=== PATIENT | female | born 1945 | race Caucasian/White ===

== ENCOUNTER 2018-09-30 11:52 | Observation (INO) ==
[2018-09-30] MEDS ORDERED: Lidocaine -MPF 2% 2 ML VIAL ONE (12:22)
[2018-09-30] MEDS ORDERED: *HR* Succinylcholine 200 MG/10 ML VIAL IVP ONE (12:22)
[2018-09-30] MEDS ORDERED: Dexamethasone 4 MG/ML VIAL ONE (12:22)
[2018-09-30] MEDS ORDERED: Ondansetron 4 MG/2 ML VIAL ONE (12:22)
[2018-09-30] MEDS ORDERED: Lidocaine -MPF 4% 5 ML AMPUL ONE (12:22)
[2018-09-30] MEDS ORDERED: *HR* FentaNYL (PF) 100 MCG/2 ML VIAL ONE (12:25)
[2018-09-30] MEDS ORDERED: *HR* Propofol 200 MG/20 ML VIAL IVP ONE (12:25)
[2018-09-30] MEDS ORDERED: CeFAZolin Syr 2,000MG/20 ML 2,000 MG/20 ML SYRINGE IVPB ONE (12:41)
[2018-09-30] MEDS ORDERED: Albuterol 2.5 MG/3 ML NEBULIZER IH ONE (12:41)
[2018-09-30] MEDS ORDERED: Ringers Solution, Lactated 1,000 ML IVC SCH ×2 (12:45→18:21)
[2018-09-30] MEDS ORDERED: Ethanol\\Acetic Acid\\Na Ace\\Ben 1,000 ML IRRIG.SOLN IR ONE (12:53)
[2018-09-30] MEDS ORDERED: *HR* Labetalol 20 MG/4 ML SYRINGE IVP PRN (12:54)
[2018-09-30] MEDS ORDERED: Ondansetron 4 MG/2 ML VIAL IVP ONE (12:54)
[2018-09-30] MEDS ORDERED: *HR* Promethazine 25 MG/ML VIAL IVP PRN (12:54)
[2018-09-30] MEDS ORDERED: *HR* OxyCODONE Immed Rel 5 MG TABLET PO PRN (12:54)
[2018-09-30] MEDS ORDERED: Acetaminophen IV 1,000 MG/100 ML INFUS..BTL IVPB ONE (12:54)
[2018-09-30] MEDS ORDERED: Famotidine 20 MG/2 ML VIAL IVP ONE (12:54)
[2018-09-30] MEDS ORDERED: ROPIVACAINE/PF/NS 0.25% 1 EACH SYRINGE INTRAART ONE (13:07)
[2018-09-30] MEDS ORDERED: Ropivacaine/PF 0.5% 30 ML VIAL ONE (13:07)
[2018-09-30] MEDS ORDERED: *HR* Midazolam HCl 2 MG/2 ML VIAL ONE (13:11)
[2018-09-30] MEDS ORDERED: Tranexamic Acid 1,000 MG/10 ML VIAL ONE (13:12)
[2018-09-30] MEDS ORDERED: *HR* Rocuronium Bromide 50 MG/5 ML VIAL ONE (14:35)
[2018-09-30] MEDS ORDERED: EPHEDrine 50 MG/ML VIAL ONE (15:29)
[2018-09-30] MEDS ORDERED: *HR* PHENYLEPHRINE 1,000 MCG/10 ML SYRINGE IVP ONE (16:13)
[2018-09-30] MEDS: *HR* HYDROmorphone (PF) 1 MG/ML SYRINGE IVP PRN ×2 (16:46→17:06)
[2018-09-30] MEDS ORDERED: *HR* HYDROcodone/Acet 5/325 mg TABLET PO PRN ×2 (18:21)
[2018-09-30] MEDS ORDERED: Temazepam 15 MG CAPSULE PO PRN (18:21)
[2018-09-30] MEDS ORDERED: Sennosides 8.6 MG TABLET PO PRN (18:21)
[2018-09-30] MEDS ORDERED: MOM Conc 10 ML UD.LIQ PO PRN (18:21)
[2018-09-30] MEDS ORDERED: Ondansetron 4 MG/2 ML VIAL IVP PRN (18:21)
[2018-09-30] MEDS: Ketorolac 15 MG/ML VIAL IVP PRN (21:56)
[2018-10-01] MEDS: ceFAZolin 2,000 MG in 0.9 % Sodium Chloride 100 ML IVPB SCH ×2 (00:08→08:14)
[2018-10-01] MEDS ORDERED: Acetaminophen IV 1,000 MG/100 ML INFUS..BTL IVPB PRN (00:24)
[2018-10-01] MEDS: Ketorolac 15 MG/ML VIAL IVP PRN (04:14)
[2018-10-01 06:50] LABS: Hematocrit 30.5 % (35.3-44.9); Hemoglobin 9.5 g/dL (11.5-15.4)
[2018-10-01 07:06] LABS: BUN/Creatinine Ratio 23 (6-26); Blood Urea Nitrogen 23 mg/dL (8-23); Calcium 9.1 mg/dL (8.6-10.3); Carbon Dioxide 24 mEq/L (23-29); Chloride 103 mEq/L (98-107); Glucose 155 mg/dL (70-105); Osmolality,Calculated 289 (280-300); Potassium 4.3 mEq/L (3.5-5.1); Sodium 136 mEq/L (136-145); eGFR For African Americans > 60 (> 60); eGFR For Non-African Americans 55 (> 60)
[2018-10-01 08:32] VITALS: BP 131/73
[2018-10-01] MEDS ORDERED: Aspirin 81 MG TAB.CHEW PO SCH (09:00)
[2018-10-01] MEDS ORDERED: VITAMIN D3 PO SCH (09:00)
[2018-10-01] MEDS ORDERED: Cholecalciferol (D-3) 1,000 UNIT (25MCG) TABLET PO SCH (09:00)
[2018-10-01] MEDS ORDERED: CALCIUM CARBONATE PO SCH (09:00)
[2018-10-01] MEDS ORDERED: [UNRECOGNIZED DRUG - OTHER] PO SCH (09:00)
[2018-10-01] MEDS ORDERED: *HR* Enoxaparin 30 MG/0.3 ML SYRINGE SQ ONE (10:31)
[2018-10-01] MEDS ORDERED: *HR* Enoxaparin 30 MG/0.3 ML SYRINGE SQ SCH (16:25)
== END 2018-10-01 11:10 | disposition home or self-care (01) | DRG 483 ==
LOC: SAMDAY 11:52 → INTOOBSV 17:31 → 3NENU 17:31
PROVIDERS: ADMIT Orthopaedic Surgery; ATTEND Orthopaedic Surgery

== ENCOUNTER 2021-06-20 15:07 | Observation (INO) ==
[2021-06-20] MEDS ORDERED: Morphine Sulfate 2 MG/ML SYRINGE IVP ONE (15:49)
[2021-06-20] MEDS ORDERED: Isovue-370 500 ML BOTTLE IVP ONE (15:49)
[2021-06-20] MEDS ORDERED: Ondansetron 4 MG/2 ML VIAL IVP ONE (15:49)
[2021-06-20 16:16] LABS: Basophils # 0.1 K/mcL (0.0-0.2); Basophils % 0.5 %; Eosinophils # 0.1 K/mcL (0.0-0.6); Hematocrit 35.7 % (35.3-44.9); Immature Granulocytes % 0.6 % (0-4); Lymphocytes # 1.8 K/mcL (0.6-4.6); Lymphocytes % 13.3 %; Mean Corpuscular HGB Conc 30.8 g/dL (31.6-35.5); Mean Corpuscular Hemoglobin 28.8 pg (28.0-33.3); Mean Corpuscular Volume 93.5 fL (83.0-100.0); Mean Platelet Volume 8.9 fL (9.4-12.4); Monocytes # 0.8 K/mcL (0.0-1.3); Monocytes % 5.8 %; Neutrophils # 10.9 K/mcL (1.6-8.9); Platelet Count 493 K/mcL (140-400); Red Blood Count 3.82 M/mcL (3.82-4.97); Red Cell Distribution Width 13.7 % (11.5-14.5); Segmented Neutrophils % 78.8 %; White Blood Count 13.8 K/mcL (4.3-11.1)
[2021-06-20 16:37] LABS: Alanine Aminotransferase 9 Units/L (7-52); Albumin 4.3 g/dL (3.5-5.7); Albumin/Globulin Ratio 1.3 (1.1-2.2); Alkaline Phosphatase 66 Units/L (34-104); Amylase 26 Units/L (29-103); Aspartate Amino Transferase 13 Units/L (13-39); BUN/Creatinine Ratio 16 (6-26); Bilirubin,Direct 0.1 mg/dL (0.0-0.2); Bilirubin,Indirect 0.2 mg/dL (0.0-1.0); Bilirubin,Total 0.3 mg/dL (0.3-1.0); Blood Urea Nitrogen 14 mg/dL (8-23); Calcium 9.6 mg/dL (8.6-10.3); Carbon Dioxide 26 mEq/L (23-29); Chloride 100 mEq/L (98-107); Globulin 3.4 g/dL (2.4-3.5); Glucose 122 mg/dL (70-105); Lipase 20 Units/L (11-82); Osmolality,Calculated 284 (280-300); Potassium 3.6 mEq/L (3.5-5.1); Sodium 136 mEq/L (136-145); Total Protein 7.7 g/dL (6.4-8.9); eGFR For African Americans > 60 (> 60); eGFR For Non-African Americans > 60 (> 60)
[2021-06-20 16:38] LABS: Bilirubin,Urine Negative (Negative); Blood,Urine Moderate (Negative); Clarity,Urine Clear (Clear); Color,Urine Yellow (Yellow); Glucose,Urine (UA) Normal (Normal); Hyaline Casts,Urine Few per lpf (None Seen); Ketones,Urine Negative (Negative); Leukocyte Esterase,Urine Negative (Negative); Mucus,Urine Many per lpf (None-Few); Nitrite,Urine Negative (Negative); Protein,Urine 30 mg/dL (Neg-Trace); RBC,Urine TNTC per hpf (0-3); Specific Gravity,Urine > 1.030 (1.010-1.025); Squamous Epithelial Cell,Urine Few per hpf (None-Few); Urobilinogen,Urine Normal (Normal)
[2021-06-20] MEDS ORDERED: *HR* FentaNYL (PF) 100 MCG/2 ML VIAL IVP ONE (17:48)
[2021-06-20] MEDS ORDERED: Tetracaine/Benzocaine/Butamben 1 SPRAY AEROSOL MM ONE (18:05)
[2021-06-20] MEDS ORDERED: *HR* LORazepam 2 MG/ML VIAL IVP ONE (18:06)
[2021-06-20] MEDS ORDERED: *HR* HYDROmorphone 2 MG/ML SYRINGE IVP ONE (19:30)
[2021-06-20] MEDS ORDERED: Naloxone 0.4 MG/ML INJ IVP PRN (19:37)
[2021-06-20 19:38] LABS: INR 0.9; Prothrombin Time 10.5 Seconds (9.4-12.1)
[2021-06-20 19:40] LABS: Activated Partial Thrombo Time 30.3 Seconds (26.0-36.0)
[2021-06-20] MEDS ORDERED: Acetaminophen IV 1,000 MG/100 ML BAG IVPB PRN (19:42)
[2021-06-20] MEDS ORDERED: Saliva Stimulant 44.3ml BOTTLE PO PRN (19:42)
[2021-06-20] MEDS ORDERED: Chloraseptic Spray 177 ML BOTTLE MM PRN (19:42)
[2021-06-20 20:21] LABS: Magnesium 1.9 mg/dL (1.6-2.6)
[2021-06-20] MEDS ORDERED: Melatonin 3 MG TABLET PO PRN (21:00)
[2021-06-20] MEDS: Ondansetron ODT 4 MG TAB.RAPDIS SL PRN (21:56)
[2021-06-20] MEDS: Ringers Solution, Lactated 1,000 ML IVC SCH (22:01)
[2021-06-21] MEDS ORDERED: Acetaminophen IV 1,000 MG/100 ML BAG IVPB SCH
[2021-06-21] MEDS ORDERED: Morphine Sulfate 2 MG/ML SYRINGE IVP PRN (00:19)
[2021-06-21] MEDS ORDERED: Acetaminophen IV 1,000 MG/100 ML BAG IVPB PRN (00:21)
[2021-06-21] MEDS: Morphine Sulfate 2 MG/ML SYRINGE IVP PRN ×2 (00:54→04:47)
[2021-06-21] MEDS: Ringers Solution, Lactated 1,000 ML IVC SCH (06:38)
[2021-06-21] MEDS: Ondansetron ODT 4 MG TAB.RAPDIS SL PRN ×2 (07:33→16:47)
[2021-06-21 08:25] LABS: Basophils # 0.1 K/mcL (0.0-0.2); Basophils % 0.7 %; Eosinophils # 0.3 K/mcL (0.0-0.6); Eosinophils % 3.2 %; Hematocrit 29.9 % (35.3-44.9); Immature Granulocytes % 0.4 % (0-4); Lymphocytes # 2.2 K/mcL (0.6-4.6); Lymphocytes % 23.5 %; Mean Corpuscular HGB Conc 30.4 g/dL (31.6-35.5); Mean Corpuscular Volume 95.2 fL (83.0-100.0); Monocytes # 0.9 K/mcL (0.0-1.3); Monocytes % 9.2 %; Platelet Count 405 K/mcL (140-400); Red Blood Count 3.14 M/mcL (3.82-4.97); Red Cell Distribution Width 14.2 % (11.5-14.5); White Blood Count 9.5 K/mcL (4.3-11.1)
[2021-06-21 08:26] LABS: Hemoglobin 9.1 g/dL (11.5-15.4)
[2021-06-21 08:44] LABS: Albumin 3.5 g/dL (3.5-5.7); Albumin/Globulin Ratio 1.3 (1.1-2.2); Bilirubin,Indirect 0.3 mg/dL (0.0-1.0); Bilirubin,Total 0.3 mg/dL (0.3-1.0); Globulin 2.6 g/dL (2.4-3.5); Total Protein 6.1 g/dL (6.4-8.9)
[2021-06-21 08:45] LABS: BUN/Creatinine Ratio 16 (6-26); Blood Urea Nitrogen 13 mg/dL (8-23); Calcium 8.4 mg/dL (8.6-10.3); Carbon Dioxide 27 mEq/L (23-29); Chloride 103 mEq/L (98-107); Chol/HDL Ratio 3.1 (0-4.9); Cholesterol 151 mg/dL (< 200); Glucose 118 mg/dL (70-105); HDL Cholesterol 49 mg/dL (40-59); LDL Cholesterol,Calculated 74 mg/dL (< 100); Magnesium 1.9 mg/dL (1.6-2.6); Osmolality,Calculated 281 (280-300); Phosphorous 2.9 mg/dL (2.7-4.5); Potassium 3.7 mEq/L (3.5-5.1); Sodium 135 mEq/L (136-145); Triglycerides 139 mg/dL (< 150); eGFR For African Americans > 60 (> 60); eGFR For Non-African Americans > 60 (> 60)
[2021-06-21 10:25] LABS: Protein/Creatinine Ratio,Urine 0.12 mg/mg (0.00-0.20)
[2021-06-21] MEDS: Ketorolac 30 MG/ML VIAL IVP PRN ×2 (11:45→17:59)
[2021-06-21] MEDS ORDERED: Ketorolac 30 MG/ML VIAL IVP PRN (19:07)
[2021-06-21] MEDS ORDERED: Ondansetron 4 MG/2 ML VIAL IVP ONE (21:06)
[2021-06-21] MEDS ORDERED: Morphine Sulfate Oral CONC 10 MG/0.5 ML ORAL.SYG SL ONE (22:56)
[2021-06-22 02:35] LABS: Hematocrit 27.7 % (35.3-44.9); Hemoglobin 8.5 g/dL (11.5-15.4); Mean Corpuscular HGB Conc 30.7 g/dL (31.6-35.5); Mean Corpuscular Volume 97.9 fL (83.0-100.0); Mean Platelet Volume 9.1 fL (9.4-12.4); Platelet Count 372 K/mcL (140-400); Red Blood Count 2.83 M/mcL (3.82-4.97)
[2021-06-22 02:52] LABS: BUN/Creatinine Ratio 17 (6-26); Blood Urea Nitrogen 12 mg/dL (8-23); Calcium 8.1 mg/dL (8.6-10.3); Carbon Dioxide 27 mEq/L (23-29); Chloride 103 mEq/L (98-107); Glucose 100 mg/dL (70-105); Magnesium 1.9 mg/dL (1.6-2.6); Osmolality,Calculated 282 (280-300); Phosphorous 2.8 mg/dL (2.7-4.5); Potassium 3.6 mEq/L (3.5-5.1); Sodium 136 mEq/L (136-145); eGFR For African Americans > 60 (> 60); eGFR For Non-African Americans > 60 (> 60)
[2021-06-22] MEDS ORDERED: Ondansetron 4 MG/2 ML VIAL IVP ONE (03:40)
[2021-06-22] MEDS: Acetaminophen 325 MG TABLET PO PRN ×2 (15:03→22:21)
[2021-06-23 06:49] LABS: Hematocrit 25.9 % (35.3-44.9); Hemoglobin 7.9 g/dL (11.5-15.4); Mean Corpuscular HGB Conc 30.5 g/dL (31.6-35.5); Mean Corpuscular Hemoglobin 29.2 pg (28.0-33.3); Mean Corpuscular Volume 95.6 fL (83.0-100.0); Mean Platelet Volume 9.1 fL (9.4-12.4); Platelet Count 360 K/mcL (140-400); Red Blood Count 2.71 M/mcL (3.82-4.97); Red Cell Distribution Width 13.8 % (11.5-14.5); White Blood Count 6.9 K/mcL (4.3-11.1)
[2021-06-23 07:03] LABS: BUN/Creatinine Ratio 11 (6-26); Blood Urea Nitrogen 7 mg/dL (8-23); Calcium 8.7 mg/dL (8.6-10.3); Carbon Dioxide 34 mEq/L (23-29); Chloride 100 mEq/L (98-107); Glucose 102 mg/dL (70-105); Magnesium 2.1 mg/dL (1.6-2.6); Osmolality,Calculated 284 (280-300); Phosphorous 2.5 mg/dL (2.7-4.5); Potassium 3.6 mEq/L (3.5-5.1); Sodium 138 mEq/L (136-145); eGFR For African Americans > 60 (> 60); eGFR For Non-African Americans > 60 (> 60)
[2021-06-23] MEDS ORDERED: Lidocaine -MPF 2% 5 ML VIAL ONE (12:50)
[2021-06-23] MEDS ORDERED: *HR* Metoprolol 5 MG/5 ML VIAL IVP ONE (12:50)
[2021-06-23] MEDS ORDERED: Pantoprazole 40 MG VIAL IVP ONE (12:56)
[2021-06-23] MEDS: Acetaminophen 325 MG TABLET PO PRN (23:38)
[2021-06-24 05:42] LABS: Hematocrit 27.1 % (35.3-44.9); Hemoglobin 8.2 g/dL (11.5-15.4); Mean Corpuscular HGB Conc 30.3 g/dL (31.6-35.5); Mean Corpuscular Hemoglobin 28.9 pg (28.0-33.3); Mean Corpuscular Volume 95.4 fL (83.0-100.0); Mean Platelet Volume 9.1 fL (9.4-12.4); Platelet Count 377 K/mcL (140-400); Red Blood Count 2.84 M/mcL (3.82-4.97); Red Cell Distribution Width 13.9 % (11.5-14.5); White Blood Count 8.1 K/mcL (4.3-11.1)
[2021-06-24 06:01] LABS: BUN/Creatinine Ratio 14 (6-26); Blood Urea Nitrogen 12 mg/dL (8-23); Calcium 8.5 mg/dL (8.6-10.3); Carbon Dioxide 32 mEq/L (23-29); Chloride 100 mEq/L (98-107); Glucose 99 mg/dL (70-105); Osmolality,Calculated 284 (280-300); Phosphorous 3.2 mg/dL (2.7-4.5); Potassium 3.4 mEq/L (3.5-5.1); Sodium 137 mEq/L (136-145); eGFR For African Americans > 60 (> 60); eGFR For Non-African Americans > 60 (> 60)
[2021-06-24 06:42] VITALS: O2SAT 100
[2021-06-24 10:24] VITALS: BP 114/68; PULSE 78; TEMP 97.6
[2021-06-24 11:18] LABS: % Iron Saturation 5 % (15-50); Iron 17 mcg/dL (50-170); Transferrin 269 mg/dL (203-362)
[2021-06-24 11:35] LABS: Ferritin 37 ng/mL (10-120)
== END 2021-06-24 14:35 | disposition home or self-care (01) ==
LOC: 3BNU 15:07 → EMEROOARM 15:07 → SUATTDRO 20:59 → 3BNU 21:30
PROVIDERS: ADMIT Pharmacist; ATTEND Internal Medicine
PROC: ENDOEBX (2021-06-23 12:20)

== ENCOUNTER 2021-06-30 11:11 | Observation (INO) ==
[2021-06-30] MEDS ORDERED: Isovue-370 500 ML BOTTLE IVP ONE (12:16)
[2021-06-30 12:20] LABS: Bacteria,Urine Few per hpf (None-Few); Bilirubin,Urine Negative (Negative); Blood,Urine Negative (Negative); Clarity,Urine Turbid (Clear); Color,Urine Light-Yellow (Yellow); Glucose,Urine (UA) Normal (Normal); Hyaline Casts,Urine Few per lpf (None Seen); Ketones,Urine Negative (Negative); Leukocyte Esterase,Urine Moderate (Negative); Mucus,Urine Few per lpf (None-Few); Nitrite,Urine Negative (Negative); Protein,Urine Trace mg/dL (Neg-Trace); RBC,Urine 0-3 per hpf (0-3); Specific Gravity,Urine 1.019 (1.010-1.025); Squamous Epithelial Cell,Urine Moderate per hpf (None-Few); Urobilinogen,Urine Normal (Normal); WBC,Urine 15-30 per hpf (0-3)
[2021-06-30 12:21] LABS: Basophils # 0.1 K/mcL (0.0-0.2); Basophils % 0.7 %; Eosinophils # 0.3 K/mcL (0.0-0.6); Eosinophils % 3.7 %; Hematocrit 29.3 % (35.3-44.9); Hemoglobin 9.1 g/dL (11.5-15.4); Immature Granulocytes % 0.3 % (0-4); Lymphocytes % 28.1 %; Mean Corpuscular HGB Conc 31.1 g/dL (31.6-35.5); Mean Corpuscular Hemoglobin 28.9 pg (28.0-33.3); Mean Platelet Volume 9.1 fL (9.4-12.4); Monocytes # 0.6 K/mcL (0.0-1.3); Monocytes % 8.6 %; Neutrophils # 4.2 K/mcL (1.6-8.9); Platelet Count 515 K/mcL (140-400); Red Blood Count 3.15 M/mcL (3.82-4.97); Red Cell Distribution Width 13.7 % (11.5-14.5); Segmented Neutrophils % 58.6 %; White Blood Count 7.1 K/mcL (4.3-11.1)
[2021-06-30] MEDS ORDERED: Ondansetron 4 MG/2 ML VIAL IVP ONE (12:23)
[2021-06-30] MEDS ORDERED: 0.9 % Sodium Chloride 500 ML IVC ONE (12:23)
[2021-06-30 12:45] LABS: Alanine Aminotransferase 8 Units/L (7-52); Albumin 4.3 g/dL (3.5-5.7); Albumin/Globulin Ratio 1.4 (1.1-2.2); Alkaline Phosphatase 54 Units/L (34-104); Amylase 29 Units/L (29-103); Aspartate Amino Transferase 11 Units/L (13-39); BUN/Creatinine Ratio 19 (6-26); Bilirubin,Indirect 0.3 mg/dL (0.0-1.0); Bilirubin,Total 0.3 mg/dL (0.3-1.0); Blood Urea Nitrogen 20 mg/dL (8-23); Calcium 9.5 mg/dL (8.6-10.3); Carbon Dioxide 27 mEq/L (23-29); Chloride 98 mEq/L (98-107); Globulin 3.1 g/dL (2.4-3.5); Glucose 106 mg/dL (70-105); Lipase 21 Units/L (11-82); Osmolality,Calculated 279 (280-300); Potassium 4.2 mEq/L (3.5-5.1); Sodium 133 mEq/L (136-145); Total Protein 7.4 g/dL (6.4-8.9); eGFR For African Americans > 60 (> 60); eGFR For Non-African Americans 50 (> 60)
[2021-06-30] MEDS ORDERED: cefTRIAXone 1,000 MG in Water for inj. (sterile) 10 ML IVP ONE (13:42)
[2021-06-30] MEDS ORDERED: Ketorolac 30 MG/ML VIAL IVP ONE (13:55)
[2021-06-30] MEDS ORDERED: Ketorolac 30 MG/ML VIAL IM PRN (14:54)
[2021-06-30] MEDS ORDERED: Naloxone 0.4 MG/ML INJ IVP PRN (14:54)
[2021-06-30] MEDS ORDERED: Ondansetron 4 MG/2 ML VIAL IVP PRN (14:54)
[2021-06-30 15:26] LABS: Influenza A PCR Negative (Negative); Influenza B PCR Negative (Negative); Resp. Syncytial Virus PCR Negative (Negative)
[2021-06-30 15:27] LABS: SARS-CoV-2 by PCR (In House) Negative (Negative)
[2021-06-30] MEDS: 0.9 % Sodium Chloride 1,000 ML IVC SCH (17:23)
[2021-06-30] MEDS ORDERED: Ketorolac 30 MG/ML VIAL IVP PRN (17:57)
[2021-06-30] MEDS: *HR* HYDROcodone/Acet 5/325 mg TABLET PO PRN (21:50)
[2021-07-01] MEDS: *HR* HYDROcodone/Acet 5/325 mg TABLET PO PRN ×2 (03:47→18:59)
[2021-07-01 03:54] LABS: Basophils # 0.1 K/mcL (0.0-0.2); Basophils % 1.1 %; Eosinophils # 0.4 K/mcL (0.0-0.6); Eosinophils % 6.4 %; Hematocrit 25.3 % (35.3-44.9); Hemoglobin 7.6 g/dL (11.5-15.4); Immature Granulocytes % 0.3 % (0-4); Lymphocytes # 2.3 K/mcL (0.6-4.6); Lymphocytes % 35.4 %; Mean Corpuscular Hemoglobin 28.3 pg (28.0-33.3); Mean Corpuscular Volume 94.1 fL (83.0-100.0); Mean Platelet Volume 9.1 fL (9.4-12.4); Monocytes # 0.7 K/mcL (0.0-1.3); Monocytes % 10.6 %; Platelet Count 413 K/mcL (140-400); Red Blood Count 2.69 M/mcL (3.82-4.97); Red Cell Distribution Width 13.9 % (11.5-14.5); Segmented Neutrophils % 46.2 %; White Blood Count 6.4 K/mcL (4.3-11.1)
[2021-07-01 04:07] LABS: Alanine Aminotransferase 7 Units/L (7-52); Albumin 3.5 g/dL (3.5-5.7); Albumin/Globulin Ratio 1.3 (1.1-2.2); Alkaline Phosphatase 42 Units/L (34-104); Aspartate Amino Transferase 11 Units/L (13-39); BUN/Creatinine Ratio 19 (6-26); Bilirubin,Indirect 0.2 mg/dL (0.0-1.0); Bilirubin,Total 0.2 mg/dL (0.3-1.0); Blood Urea Nitrogen 17 mg/dL (8-23); Calcium 8.1 mg/dL (8.6-10.3); Carbon Dioxide 26 mEq/L (23-29); Chloride 104 mEq/L (98-107); Globulin 2.7 g/dL (2.4-3.5); Glucose 80 mg/dL (70-105); Magnesium 2.2 mg/dL (1.6-2.6); Osmolality,Calculated 283 (280-300); Potassium 3.6 mEq/L (3.5-5.1); Sodium 136 mEq/L (136-145); Total Protein 6.2 g/dL (6.4-8.9); eGFR For African Americans > 60 (> 60); eGFR For Non-African Americans > 60 (> 60)
[2021-07-01 04:12] LABS: INR 1.1; Prothrombin Time 12.4 Seconds (9.4-12.1)
[2021-07-01] MEDS: 0.9 % Sodium Chloride 1,000 ML IVC SCH (06:57)
[2021-07-01] MEDS: cefTRIAXone 1,000 MG in 0.9 % Sodium Chloride Mini Bag 100 ML IVPB SCH (07:45)
[2021-07-01] MEDS: atenoloL 50 MG TABLET PO SCH (07:46)
[2021-07-01] MEDS: Aspirin Enteric Coated 81 MG Tablet PO SCH (14:25)
[2021-07-01] MEDS: MetroNIDAZOLE 500 MG/100 ML 500 MG/100 ML BAG IVPB SCH ×3 (14:25→23:06)
[2021-07-02] MEDS: *HR* HYDROcodone/Acet 5/325 mg TABLET PO PRN (00:21)
[2021-07-02 04:33] LABS: Basophils # 0.1 K/mcL (0.0-0.2); Basophils % 1.1 %; Eosinophils # 0.4 K/mcL (0.0-0.6); Eosinophils % 5.9 %; Hematocrit 24.6 % (35.3-44.9); Hemoglobin 7.5 g/dL (11.5-15.4); Immature Granulocytes % 0.3 % (0-4); Lymphocytes # 2.5 K/mcL (0.6-4.6); Lymphocytes % 33.7 %; Mean Corpuscular HGB Conc 30.5 g/dL (31.6-35.5); Mean Corpuscular Hemoglobin 29.4 pg (28.0-33.3); Mean Corpuscular Volume 96.5 fL (83.0-100.0); Monocytes # 0.7 K/mcL (0.0-1.3); Monocytes % 9.5 %; Neutrophils # 3.6 K/mcL (1.6-8.9); Platelet Count 434 K/mcL (140-400); Red Blood Count 2.55 M/mcL (3.82-4.97); Red Cell Distribution Width 13.8 % (11.5-14.5); Segmented Neutrophils % 49.5 %; White Blood Count 7.3 K/mcL (4.3-11.1)
[2021-07-02 06:23] LABS: BUN/Creatinine Ratio 16 (6-26); Blood Urea Nitrogen 13 mg/dL (8-23); Calcium 8.2 mg/dL (8.6-10.3); Carbon Dioxide 25 mEq/L (23-29); Chloride 103 mEq/L (98-107); Glucose 85 mg/dL (70-105); Magnesium 2.1 mg/dL (1.6-2.6); Osmolality,Calculated 281 (280-300); Phosphorous 2.5 mg/dL (2.7-4.5); Potassium 3.5 mEq/L (3.5-5.1); Sodium 136 mEq/L (136-145); eGFR For African Americans > 60 (> 60); eGFR For Non-African Americans > 60 (> 60)
[2021-07-02] MEDS: atenoloL 50 MG TABLET PO SCH (07:47)
[2021-07-02] MEDS: cefTRIAXone 1,000 MG in 0.9 % Sodium Chloride Mini Bag 100 ML IVPB SCH (07:47)
[2021-07-02] MEDS: MetroNIDAZOLE 500 MG/100 ML 500 MG/100 ML BAG IVPB SCH (07:47)
[2021-07-02] MEDS: Aspirin Enteric Coated 81 MG Tablet PO SCH (07:47)
[2021-07-02 11:44] VITALS: BP 102/60; PULSE 65; TEMP 97.9; O2SAT 97
== END 2021-07-02 14:41 | disposition home or self-care (01) ==
LOC: EMEROOARM 11:11 → 3ANU 11:11 → SUATTDRO 15:07 → 3ANU 16:09
PROVIDERS: ADMIT Student in an Organized Health Care Education/Training Program; ATTEND Internal Medicine

== ENCOUNTER 2021-07-07 09:46 | Observation (INO) ==
[2021-07-07] MEDS ORDERED: 0.9 % Sodium Chloride 1,000 ML IVC ONE (10:34)
[2021-07-07] MEDS ORDERED: Ondansetron 4 MG/2 ML VIAL IVP ONE (10:34)
[2021-07-07] MEDS ORDERED: *HR* HYDROmorphone (PF) 1 MG/ML SYRINGE IVP ONE ×2 (10:35→12:27)
[2021-07-07] MEDS ORDERED: Isovue-370 500 ML BOTTLE IVP ONE ×2 (10:36→14:49)
[2021-07-07 10:43] LABS: Hematocrit 32.7 % (35.3-44.9); Immature Granulocytes % 0.3 % (0-4); Mean Corpuscular HGB Conc 30.6 g/dL (31.6-35.5); Mean Corpuscular Hemoglobin 28.6 pg (28.0-33.3); Mean Corpuscular Volume 93.4 fL (83.0-100.0); Mean Platelet Volume 8.9 fL (9.4-12.4); Platelet Count 552 K/mcL (140-400); Red Cell Distribution Width 13.7 % (11.5-14.5); Segmented Neutrophils % 65.9 %; White Blood Count 8.7 K/mcL (4.3-11.1)
[2021-07-07 10:44] LABS: Basophils # 0.1 K/mcL (0.0-0.2); Eosinophils # 0.4 K/mcL (0.0-0.6); Eosinophils % 4.9 %; Lymphocytes # 1.8 K/mcL (0.6-4.6); Monocytes # 0.6 K/mcL (0.0-1.3); Monocytes % 6.9 %; Neutrophils # 5.7 K/mcL (1.6-8.9)
[2021-07-07 12:13] LABS: Alanine Aminotransferase 7 Units/L (7-52); Albumin 3.6 g/dL (3.5-5.7); Albumin/Globulin Ratio 1.4 (1.1-2.2); Alkaline Phosphatase 47 Units/L (34-104); Aspartate Amino Transferase 12 Units/L (13-39); BUN/Creatinine Ratio 15 (6-26); Bilirubin,Indirect 0.3 mg/dL (0.0-1.0); Bilirubin,Total 0.3 mg/dL (0.3-1.0); Blood Urea Nitrogen 11 mg/dL (8-23); Calcium 8.4 mg/dL (8.6-10.3); Carbon Dioxide 21 mEq/L (23-29); Chloride 105 mEq/L (98-107); Globulin 2.6 g/dL (2.4-3.5); Glucose 111 mg/dL (70-105); Lipase 14 Units/L (11-82); Osmolality,Calculated 282 (280-300); Potassium 3.5 mEq/L (3.5-5.1); Sodium 136 mEq/L (136-145); Total Protein 6.2 g/dL (6.4-8.9); eGFR For African Americans > 60 (> 60); eGFR For Non-African Americans > 60 (> 60)
[2021-07-07 12:35] LABS: Bilirubin,Urine Negative (Negative); Blood,Urine Negative (Negative); Clarity,Urine Clear (Clear); Color,Urine Light-Yellow (Yellow); Glucose,Urine (UA) Normal (Normal); Ketones,Urine Negative (Negative); Leukocyte Esterase,Urine Negative (Negative); Nitrite,Urine Negative (Negative); Protein,Urine Trace mg/dL (Neg-Trace); Specific Gravity,Urine 1.021 (1.010-1.025); Urobilinogen,Urine Normal (Normal)
[2021-07-07] MEDS ORDERED: Ondansetron ODT 4 MG TAB.RAPDIS SL PRN (14:28)
[2021-07-07] MEDS ORDERED: Naloxone 0.4 MG/ML INJ IVP PRN (14:28)
[2021-07-07] MEDS ORDERED: Acetaminophen 325 MG TABLET PO PRN (14:34)
[2021-07-07] MEDS: Ketorolac 30 MG/ML VIAL IVP PRN ×2 (16:42→22:01)
[2021-07-07] MEDS: Ringers Solution, Lactated 1,000 ML IVC SCH ×2 (16:43→22:36)
[2021-07-08] MEDS: MetroNIDAZOLE 500 MG/100 ML 500 MG/100 ML BAG IVPB SCH ×4 (00:18→23:06)
[2021-07-08] MEDS: Melatonin 3 MG TABLET PO PRN ×2 (00:21→21:11)
[2021-07-08 05:25] LABS: Hematocrit 25.9 % (35.3-44.9); Hemoglobin 7.9 g/dL (11.5-15.4); Mean Corpuscular HGB Conc 30.5 g/dL (31.6-35.5); Mean Corpuscular Hemoglobin 29.2 pg (28.0-33.3); Mean Corpuscular Volume 95.6 fL (83.0-100.0); Platelet Count 442 K/mcL (140-400); Red Blood Count 2.71 M/mcL (3.82-4.97); Red Cell Distribution Width 13.8 % (11.5-14.5); White Blood Count 7.7 K/mcL (4.3-11.1)
[2021-07-08 05:48] LABS: BUN/Creatinine Ratio 12 (6-26); Blood Urea Nitrogen 9 mg/dL (8-23); Calcium 8.7 mg/dL (8.6-10.3); Carbon Dioxide 25 mEq/L (23-29); Chloride 106 mEq/L (98-107); Glucose 100 mg/dL (70-105); Osmolality,Calculated 283 (280-300); Potassium 3.5 mEq/L (3.5-5.1); Sodium 137 mEq/L (136-145); eGFR For African Americans > 60 (> 60); eGFR For Non-African Americans > 60 (> 60)
[2021-07-08] MEDS: Ketorolac 30 MG/ML VIAL IVP PRN ×2 (08:12→21:11)
[2021-07-08] MEDS: *HR* HYDROcodone/Acet 5/325 mg TABLET PO PRN (12:11)
[2021-07-08] MEDS ORDERED: Prochlorperazine 10 MG/2 ML VIAL IVP PRN (21:47)
[2021-07-09 05:43] LABS: Hematocrit 24.8 % (35.3-44.9); Mean Corpuscular HGB Conc 30.6 g/dL (31.6-35.5); Mean Corpuscular Hemoglobin 29.1 pg (28.0-33.3); Mean Platelet Volume 9.1 fL (9.4-12.4); Platelet Count 386 K/mcL (140-400); Red Blood Count 2.61 M/mcL (3.82-4.97); Red Cell Distribution Width 13.7 % (11.5-14.5); White Blood Count 6.6 K/mcL (4.3-11.1)
[2021-07-09 05:48] LABS: Hemoglobin 7.6 g/dL (11.5-15.4)
[2021-07-09] MEDS: Cholecalciferol (D-3) 1,000 UNIT (25MCG) TABLET PO SCH (08:11)
[2021-07-09] MEDS: MetroNIDAZOLE 500 MG/100 ML 500 MG/100 ML BAG IVPB SCH ×3 (08:11→23:26)
[2021-07-09] MEDS: atenoloL 50 MG TABLET PO SCH (08:11)
[2021-07-09] MEDS ORDERED: Aspirin Enteric Coated 81 MG Tablet PO SCH (09:00)
[2021-07-09] MEDS: *HR* HYDROcodone/Acet 5/325 mg TABLET PO PRN ×2 (15:02→20:53)
[2021-07-09] MEDS: Melatonin 3 MG TABLET PO PRN (20:52)
[2021-07-10] MEDS ORDERED: Lidocaine -MPF 2% 5 ML VIAL ONE (07:24)
[2021-07-10] MEDS ORDERED: Ondansetron 4 MG/2 ML VIAL ONE (07:24)
[2021-07-10] MEDS ORDERED: *HR* Rocuronium Bromide 50 MG/5 ML VIAL ONE (07:24)
[2021-07-10] MEDS ORDERED: Lidocaine HCL 4 ML Topical Solution (Laryng-O-Jet Kit Sterile Pak) TP ONE (07:24)
[2021-07-10] MEDS ORDERED: *HR* FentaNYL (PF) 100 MCG/2 ML VIAL ONE (07:25)
[2021-07-10] MEDS ORDERED: *HR* Propofol 200 MG/20 ML VIAL IVP ONE (07:25)
[2021-07-10] MEDS ORDERED: Isovue-300 50ML VIAL ONE (07:59)
[2021-07-10] MEDS: Cholecalciferol (D-3) 1,000 UNIT (25MCG) TABLET PO SCH (08:18)
[2021-07-10] MEDS: MetroNIDAZOLE 500 MG/100 ML 500 MG/100 ML BAG IVPB SCH ×2 (08:18→17:54)
[2021-07-10] MEDS: atenoloL 50 MG TABLET PO SCH (08:18)
[2021-07-10] MEDS ORDERED: *HR* FentaNYL (PF) 100 MCG/2 ML VIAL IVP PRN (08:58)
[2021-07-10] MEDS ORDERED: Albuterol 2.5 MG/3 ML NEBULIZER IH PRN (08:58)
[2021-07-10] MEDS ORDERED: Ondansetron 4 MG/2 ML VIAL IVP PRN (08:58)
[2021-07-10] MEDS ORDERED: Naloxone 0.4 MG/ML INJ IVP PRN ×2 (08:58→11:38)
[2021-07-10] MEDS ORDERED: Nitroglycerin 0.4 MG TAB.SUBL SL PRN (08:58)
[2021-07-10] MEDS ORDERED: *HR* Succinylcholine 200 MG/10 ML VIAL IVP ONE (09:11)
[2021-07-10] MEDS: *HR* HYDROmorphone PF 0.5 MG/0.5 ML SYRINGE IVP PRN ×3 (10:42→11:02)
[2021-07-10] MEDS: *HR* HYDROcodone/Acet 5/325 mg TABLET PO PRN ×2 (10:43→20:21)
[2021-07-10] MEDS ORDERED: Acetaminophen 325 MG TABLET PO PRN (11:38)
[2021-07-10] MEDS ORDERED: Melatonin 3 MG TABLET PO PRN (11:38)
[2021-07-10] MEDS ORDERED: Prochlorperazine 10 MG/2 ML VIAL IVP PRN (11:38)
[2021-07-11] MEDS: MetroNIDAZOLE 500 MG/100 ML 500 MG/100 ML BAG IVPB SCH ×2 (00:05→08:32)
[2021-07-11] MEDS: *HR* HYDROcodone/Acet 5/325 mg TABLET PO PRN (08:39)
[2021-07-11] MEDS ORDERED: Aspirin Enteric Coated 81 MG Tablet PO SCH (09:00)
[2021-07-11] MEDS ORDERED: Cholecalciferol (D-3) 1,000 UNIT (25MCG) TABLET PO SCH (09:00)
[2021-07-11] MEDS ORDERED: atenoloL 50 MG TABLET PO SCH (09:00)
[2021-07-11 10:27] LABS: Potassium 3.4 mEq/L (3.5-5.1)
[2021-07-11 10:37] LABS: Thyroid Stimulating Hormone 1.528 mcIU/mL (0.340-5.600)
[2021-07-11 10:38] VITALS: BP 104/58; PULSE 57; TEMP 98; O2SAT 96
== END 2021-07-11 15:26 | disposition home or self-care (01) ==
LOC: EMEROOARM 09:46 → 3BNU 09:46
PROVIDERS: ADMIT Internal Medicine; ATTEND Internal Medicine

== ENCOUNTER 2021-07-27 15:34 | Inpatient (IN) ==
[2021-07-27] MEDS ORDERED: cefTRIAXone 1,000 MG in 0.9 % Sodium Chloride 10 ML IVP ONE (16:40)
[2021-07-27] MEDS ORDERED: MetroNIDAZOLE 500 MG/100 ML 500 MG/100 ML BAG IVPB ONE (16:40)
[2021-07-27] MEDS ORDERED: Pantoprazole 40 MG VIAL IVP ONE (16:43)
[2021-07-27] MEDS ORDERED: Isovue-370 500 ML BOTTLE IVP ONE (16:43)
[2021-07-27] MEDS ORDERED: Ondansetron 4 MG/2 ML VIAL IVP PRN (16:43)
[2021-07-27] MEDS ORDERED: Morphine Sulfate 2 MG/ML SYRINGE IVP ONE ×2 (16:43→18:27)
[2021-07-27 16:51] LABS: Hematocrit 28.8 % (35.3-44.9); Hemoglobin 8.6 g/dL (11.5-15.4); Lymphocytes # 1.9 K/mcL (0.6-4.6); Mean Corpuscular HGB Conc 29.9 g/dL (31.6-35.5); Mean Corpuscular Volume 90.6 fL (83.0-100.0); Mean Platelet Volume 9.4 fL (9.4-12.4); Platelet Count 572 K/mcL (140-400); Red Blood Count 3.18 M/mcL (3.82-4.97); Red Cell Distribution Width 13.7 % (11.5-14.5); White Blood Count 9.7 K/mcL (4.3-11.1)
[2021-07-27] MEDS: 0.9 % Sodium Chloride 1,000 ML IVC SCH ×2 (16:51→17:04)
[2021-07-27 16:59] LABS: INR 1.2; Prothrombin Time 13.6 Seconds (9.4-12.1)
[2021-07-27 17:01] LABS: Bilirubin,Urine Negative (Negative); Blood,Urine Negative (Negative); Clarity,Urine Turbid (Clear); Color,Urine Yellow (Yellow); Glucose,Urine (UA) Normal (Normal); Hyaline Casts,Urine Moderate per lpf (None Seen); Ketones,Urine Negative (Negative); Leukocyte Esterase,Urine Negative (Negative); Mucus,Urine Few per lpf (None-Few); Nitrite,Urine Negative (Negative); Protein,Urine 30 mg/dL (Neg-Trace); RBC,Urine 0-3 per hpf (0-3); Renal Epithelial Cells,Urine Few per hpf (None-Few); Specific Gravity,Urine 1.026 (1.010-1.025); Squamous Epithelial Cell,Urine Moderate per hpf (None-Few); Transitional Epi Cells,Urine Few per hpf (None-Few); Urobilinogen,Urine Normal (Normal); WBC,Urine 30-50 per hpf (0-3); White Blood Cell Casts,Urine Many per lpf (None Seen)
[2021-07-27 17:02] LABS: Activated Partial Thrombo Time 32.8 Seconds (26.0-36.0)
[2021-07-27 17:06] LABS: Albumin 3.9 g/dL (3.5-5.7); Albumin/Globulin Ratio 1.1 (1.1-2.2); Bilirubin,Direct 0.1 mg/dL (0.0-0.2); Bilirubin,Indirect 0.5 mg/dL (0.0-1.0); Bilirubin,Total 0.6 mg/dL (0.3-1.0); Calcium 9.3 mg/dL (8.6-10.3); Globulin 3.5 g/dL (2.4-3.5); Potassium 3.1 mEq/L (3.5-5.1); Total Protein 7.4 g/dL (6.4-8.9)
[2021-07-27 17:18] LABS: Eosinophils # 0.4 K/mcL (0.0-0.6); Large Platelets Present (Not Present); Monocytes # 1.2 K/mcL (0.0-1.3); Neutrophils # 5.8 K/mcL (1.6-8.9)
[2021-07-27 17:19] LABS: Platelet Estimate Increased (Normal)
[2021-07-27 17:28] LABS: VBG HCO3 29 mEq/L (21-27); VBG PCO2 52 mmHg (41-51); VBG PH 7.36 pH Units (7.32-7.42); VBG PO2 55 mmHg (25-50)
[2021-07-27 17:30] LABS: Magnesium 1.8 mg/dL (1.6-2.6); Phosphorous 2.4 mg/dL (2.7-4.5)
[2021-07-27 17:32] LABS: Troponin I < 0.03 ng/mL (< 0.04)
[2021-07-27] MEDS ORDERED: Lidocaine Jelly 6ml 1 APPL/6 ML JEL.PF.APP MM ONE (19:18)
[2021-07-27] MEDS ORDERED: *HR* HYDROmorphone (PF) 1 MG/ML SYRINGE IVP ONE (19:18)
[2021-07-27] MEDS ORDERED: *HR* Propofol 200 MG/20 ML VIAL IVP ONE (20:36)
[2021-07-27] MEDS ORDERED: *HR* FentaNYL (PF) 100 MCG/2 ML VIAL ONE (20:36)
[2021-07-27] MEDS ORDERED: Lidocaine -MPF 2% 5 ML VIAL ONE (20:37)
[2021-07-27] MEDS ORDERED: *HR* Succinylcholine 200 MG/10 ML VIAL IVP ONE (20:37)
[2021-07-27] MEDS ORDERED: *HR* Rocuronium Bromide 50 MG/5 ML VIAL ONE (20:37)
[2021-07-27] MEDS ORDERED: Lidocaine HCL 4 ML Topical Solution (Laryng-O-Jet Kit Sterile Pak) TP ONE (20:40)
[2021-07-27] MEDS ORDERED: *HR* Metoprolol 5 MG/5 ML VIAL IVP ONE (21:00)
[2021-07-27] MEDS ORDERED: Ondansetron 4 MG/2 ML VIAL ONE (21:27)
[2021-07-27] MEDS ORDERED: Sugammadex Sodium 200 MG/2 ML VIAL IV ONE (22:05)
[2021-07-27] MEDS ORDERED: *HR* Metoprolol 5 MG/5 ML VIAL IVP PRN (22:33)
[2021-07-27] MEDS ORDERED: *HR* HYDROmorphone (PF) 1 MG/ML SYRINGE IVP PRN (22:39)
[2021-07-27] MEDS: *HR* HYDROmorphone PF 0.5 MG/0.5 ML SYRINGE IVP PRN ×2 (22:40→23:02)
[2021-07-27] MEDS ORDERED: 0.9 % Sodium Chloride 1,000 ML IVC SCH (22:45)
[2021-07-27] MEDS ORDERED: Ringers Solution, Lactated 1,000 ML ONE (23:09)
[2021-07-28] MEDS ORDERED: Dextrose 4 GM Chewable Tablets PO PRN ×2 (00:06)
[2021-07-28] MEDS ORDERED: D5% in Water 1,000 ML IVC PRN (00:06)
[2021-07-28] MEDS: *HR* Dextrose 50 % in Water (Syg) 50 ML SYRINGE IVP PRN (00:23)
[2021-07-28] MEDS: Acetaminophen IV 1,000 MG/100 ML BAG IVPB SCH ×5 (01:12→23:09)
[2021-07-28] MEDS: Piperacillin/Tazobactam 3.375 GM in 0.9 % Sodium Chloride Mini Bag 100 ML IVPB SCH ×4 (01:57→23:10)
[2021-07-28] MEDS: Ketorolac 30 MG/ML VIAL IVP PRN ×2 (02:40→19:34)
[2021-07-28] MEDS: *HR* Metoprolol 5 MG/5 ML VIAL IVP PRN (02:41)
[2021-07-28] MEDS: *HR* Heparin 5,000 UNIT/ML VIAL SQ SCH ×2 (05:03→17:23)
[2021-07-28 06:03] LABS: Hematocrit 25.9 % (35.3-44.9); Hemoglobin 7.7 g/dL (11.5-15.4); Mean Corpuscular HGB Conc 29.7 g/dL (31.6-35.5); Mean Corpuscular Hemoglobin 27.2 pg (28.0-33.3); Mean Corpuscular Volume 91.5 fL (83.0-100.0); Mean Platelet Volume 9.6 fL (9.4-12.4); Platelet Count 458 K/mcL (140-400); Red Blood Count 2.83 M/mcL (3.82-4.97)
[2021-07-28 06:10] LABS: White Blood Count 4.2 K/mcL (4.3-11.1)
[2021-07-28 06:25] LABS: BUN/Creatinine Ratio 13 (6-26); Blood Urea Nitrogen 13 mg/dL (8-23); Calcium 7.4 mg/dL (8.6-10.3); Carbon Dioxide 23 mEq/L (23-29); Chloride 106 mEq/L (98-107); Glucose 105 mg/dL (70-105); Osmolality,Calculated 286 (280-300); Potassium 3.4 mEq/L (3.5-5.1); Sodium 138 mEq/L (136-145); eGFR For African Americans > 60 (> 60); eGFR For Non-African Americans 51 (> 60)
[2021-07-28 06:28] LABS: Lymphocytes # 0.6 K/mcL (0.6-4.6); Monocytes # 0.8 K/mcL (0.0-1.3); Neutrophils # 2.9 K/mcL (1.6-8.9); Platelet Estimate Increased (Normal)
[2021-07-28] MEDS: Pantoprazole 40 MG VIAL IVP SCH (09:35)
[2021-07-28] MEDS: Ondansetron 4 MG/2 ML VIAL IVP PRN ×3 (11:24→23:25)
[2021-07-28] MEDS: D5% in 0.9% NACL 1,000 ML IVC SCH ×2 (11:25→21:48)
[2021-07-28] MEDS: Insulin LISPRO 300 UNITS/3 ML VIAL SUBQ SCH ×2 (11:33→18:10)
[2021-07-29] MEDS: Insulin LISPRO 300 UNITS/3 ML VIAL SUBQ SCH ×4 (00:59→16:48)
[2021-07-29 02:20] LABS: VBG Ionized Calcium 0.94 mmol/L (1.15-1.35)
[2021-07-29 02:23] LABS: Basophils # 0.1 K/mcL (0.0-0.2); Basophils % 0.3 %; Eosinophils % 0.1 %; Hematocrit 23.4 % (35.3-44.9); Hemoglobin 7.2 g/dL (11.5-15.4); Immature Granulocytes % 1.9 % (0-4); Lymphocytes # 1.3 K/mcL (0.6-4.6); Lymphocytes % 8.3 %; Mean Corpuscular HGB Conc 30.8 g/dL (31.6-35.5); Mean Corpuscular Hemoglobin 27.5 pg (28.0-33.3); Mean Corpuscular Volume 89.3 fL (83.0-100.0); Mean Platelet Volume 9.8 fL (9.4-12.4); Monocytes # 2.2 K/mcL (0.0-1.3); Monocytes % 14.3 %; Neutrophils # 11.3 K/mcL (1.6-8.9); Nucleated Red Blood Cells 0.3 /100 WBC (0); Platelet Count 465 K/mcL (140-400); Red Blood Count 2.62 M/mcL (3.82-4.97); Red Cell Distribution Width 14.3 % (11.5-14.5); Segmented Neutrophils % 75.1 %
[2021-07-29 02:24] LABS: White Blood Count 15.1 K/mcL (4.3-11.1)
[2021-07-29 02:25] LABS: Platelet Estimate Increased (Normal)
[2021-07-29 02:37] LABS: BUN/Creatinine Ratio 19 (6-26); Blood Urea Nitrogen 20 mg/dL (8-23); Carbon Dioxide 19 mEq/L (23-29); Chloride 107 mEq/L (98-107); Glucose 152 mg/dL (70-105); Osmolality,Calculated 288 (280-300); Potassium 3.7 mEq/L (3.5-5.1); Sodium 136 mEq/L (136-145); eGFR For African Americans > 60 (> 60); eGFR For Non-African Americans 50 (> 60)
[2021-07-29 02:38] LABS: Albumin 2.8 g/dL (3.5-5.7); Albumin/Globulin Ratio 1.2 (1.1-2.2); Bilirubin,Direct 0.1 mg/dL (0.0-0.2); Bilirubin,Indirect 0.2 mg/dL (0.0-1.0); Bilirubin,Total 0.3 mg/dL (0.3-1.0); Globulin 2.3 g/dL (2.4-3.5); Total Protein 5.1 g/dL (6.4-8.9)
[2021-07-29 03:36] LABS: Estimated Average Glucose 114 mg/dl; Hemoglobin A1C 5.6 %
[2021-07-29] MEDS: *HR* Heparin 5,000 UNIT/ML VIAL SQ SCH ×2 (04:56→16:45)
[2021-07-29] MEDS: Acetaminophen IV 1,000 MG/100 ML BAG IVPB SCH ×3 (06:21→19:44)
[2021-07-29] MEDS: D5% in 0.9% NACL 1,000 ML IVC SCH ×2 (07:00→16:43)
[2021-07-29] MEDS: Piperacillin/Tazobactam 3.375 GM in 0.9 % Sodium Chloride Mini Bag 100 ML IVPB SCH ×2 (10:51→16:44)
[2021-07-29] MEDS: Pantoprazole 40 MG VIAL IVP SCH (11:00)
[2021-07-30] MEDS: Piperacillin/Tazobactam 3.375 GM in 0.9 % Sodium Chloride Mini Bag 100 ML IVPB SCH ×3 (02:23→20:44)
[2021-07-30] MEDS: D5% in 0.9% NACL 1,000 ML IVC SCH ×2 (02:23→14:38)
[2021-07-30] MEDS: Ondansetron 4 MG/2 ML VIAL IVP PRN ×3 (02:24→20:44)
[2021-07-30] MEDS: Acetaminophen IV 1,000 MG/100 ML BAG IVPB SCH ×3 (02:24→14:16)
[2021-07-30] MEDS: Insulin LISPRO 300 UNITS/3 ML VIAL SUBQ SCH ×4 (02:25→19:21)
[2021-07-30] MEDS: *HR* Heparin 5,000 UNIT/ML VIAL SQ SCH (05:39)
[2021-07-30 05:40] LABS: Basophils # 0.1 K/mcL (0.0-0.2); Basophils % 0.5 %; Eosinophils # 0.3 K/mcL (0.0-0.6); Eosinophils % 2.1 %; Hematocrit 22.2 % (35.3-44.9); Immature Granulocytes % 6.2 % (0-4); Lymphocytes # 1.5 K/mcL (0.6-4.6); Lymphocytes % 10.7 %; Mean Corpuscular HGB Conc 31.5 g/dL (31.6-35.5); Mean Corpuscular Hemoglobin 28.6 pg (28.0-33.3); Mean Corpuscular Volume 90.6 fL (83.0-100.0); Mean Platelet Volume 9.8 fL (9.4-12.4); Monocytes # 1.7 K/mcL (0.0-1.3); Neutrophils # 9.9 K/mcL (1.6-8.9); Nucleated Red Blood Cells 0.1 /100 WBC (0); Platelet Count 487 K/mcL (140-400); Red Blood Count 2.45 M/mcL (3.82-4.97); Red Cell Distribution Width 14.7 % (11.5-14.5); Segmented Neutrophils % 68.5 %; White Blood Count 14.4 K/mcL (4.3-11.1)
[2021-07-30 06:13] LABS: BUN/Creatinine Ratio 18 (6-26); Blood Urea Nitrogen 15 mg/dL (8-23); Calcium 7.4 mg/dL (8.6-10.3); Carbon Dioxide 20 mEq/L (23-29); Chloride 106 mEq/L (98-107); Glucose 108 mg/dL (70-105); Hypochromasia Present (Not Present); Osmolality,Calculated 281 (280-300); Platelet Estimate Increased (Normal); Potassium 3.3 mEq/L (3.5-5.1); Sodium 135 mEq/L (136-145); eGFR For African Americans > 60 (> 60); eGFR For Non-African Americans > 60 (> 60)
[2021-07-30] MEDS ORDERED: Furosemide 20 MG/2 ML VIAL IV ONE (08:44)
[2021-07-30] MEDS ORDERED: 0.9 % Sodium Chloride 250 ML IVC SCH (08:45)
[2021-07-30] MEDS: Pantoprazole 40 MG VIAL IVP SCH (09:24)
[2021-07-30] MEDS: Potassium Chloride Elixir 20 MEQ/15 ML UDC PO SCH ×2 (09:25→20:29)
[2021-07-30] MEDS ORDERED: Furosemide 20 MG/2 ML VIAL IVP ONE (10:00)
[2021-07-30] MEDS ORDERED: Tetracaine/Benzocaine/Butamben 1 SPRAY AEROSOL MM ONE (15:24)
[2021-07-30] MEDS: atenoloL 50 MG TABLET PO SCH (15:49)
[2021-07-31] MEDS: Insulin LISPRO 300 UNITS/3 ML VIAL SUBQ SCH ×4 (00:42→17:22)
[2021-07-31] MEDS: *HR* Metoprolol 5 MG/5 ML VIAL IVP PRN (03:06)
[2021-07-31] MEDS: D5% in 0.9% NACL 1,000 ML IVC SCH ×3 (03:09→20:47)
[2021-07-31] MEDS ORDERED: Acetaminophen IV 1,000 MG/100 ML BAG IVPB ONE (04:18)
[2021-07-31] MEDS: Piperacillin/Tazobactam 3.375 GM in 0.9 % Sodium Chloride Mini Bag 100 ML IVPB SCH ×3 (05:47→21:03)
[2021-07-31 07:28] LABS: Hematocrit 26.3 % (35.3-44.9); Hemoglobin 8.1 g/dL (11.5-15.4); Mean Corpuscular HGB Conc 30.8 g/dL (31.6-35.5); Mean Corpuscular Hemoglobin 27.2 pg (28.0-33.3); Mean Corpuscular Volume 88.3 fL (83.0-100.0); Mean Platelet Volume 9.6 fL (9.4-12.4); Nucleated Red Blood Cells 0.2 /100 WBC (0); Platelet Count 489 K/mcL (140-400); Red Blood Count 2.98 M/mcL (3.82-4.97); Red Cell Distribution Width 15.6 % (11.5-14.5); White Blood Count 12.3 K/mcL (4.3-11.1)
[2021-07-31] MEDS: Potassium Chloride Elixir 20 MEQ/15 ML UDC PO SCH ×2 (07:31→21:03)
[2021-07-31] MEDS: atenoloL 50 MG TABLET PO SCH (07:31)
[2021-07-31 08:21] LABS: BUN/Creatinine Ratio 11 (6-26); Blood Urea Nitrogen 8 mg/dL (8-23); Calcium 7.5 mg/dL (8.6-10.3); Carbon Dioxide 24 mEq/L (23-29); Chloride 106 mEq/L (98-107); Glucose 130 mg/dL (70-105); Magnesium 1.5 mg/dL (1.6-2.6); Osmolality,Calculated 282 (280-300); Phosphorous 2.1 mg/dL (2.7-4.5); Potassium 3.5 mEq/L (3.5-5.1); Sodium 136 mEq/L (136-145); eGFR For African Americans > 60 (> 60); eGFR For Non-African Americans > 60 (> 60)
[2021-07-31 09:07] LABS: Eosinophils # 0.4 K/mcL (0.0-0.6); Lymphocytes # 1.9 K/mcL (0.6-4.6); Monocytes # 1.1 K/mcL (0.0-1.3); Neutrophils # 8.5 K/mcL (1.6-8.9); Platelet Estimate Increased (Normal); Toxic Granulation Present (Not Present)
[2021-07-31 09:20] LABS: ABG Base Excess -1 mEq/L (-2 to 3); ABG HCO3 24 mEq/L (21-27); ABG Oxygen Saturation 99 % (95-98); ABG PCO2 39 mmHg (35-45); ABG PO2 120 mmHg (85-104); ABG TCO2 25 mEq/L (20-26)
[2021-07-31] MEDS ORDERED: Naloxone 0.4 MG/ML INJ IVP ONE (09:36)
[2021-07-31] MEDS: Ondansetron 4 MG/2 ML VIAL IVP PRN ×2 (09:53→19:29)
[2021-07-31] MEDS: Pantoprazole 40 MG VIAL IVP SCH (09:53)
[2021-07-31] MEDS: Docusate Oral Soln 100 MG/10 ML UDC PO SCH (21:03)
[2021-08-01] MEDS: Insulin LISPRO 300 UNITS/3 ML VIAL SUBQ SCH ×4 (00:53→18:32)
[2021-08-01] MEDS: D5% in 0.9% NACL 1,000 ML IVC SCH ×3 (01:27→20:21)
[2021-08-01] MEDS ORDERED: Acetaminophen IV 1,000 MG/100 ML BAG IVPB ONE (01:50)
[2021-08-01] MEDS: Piperacillin/Tazobactam 3.375 GM in 0.9 % Sodium Chloride Mini Bag 100 ML IVPB SCH ×3 (05:40→21:05)
[2021-08-01] MEDS: *HR* Heparin 5,000 UNIT/ML VIAL SQ SCH ×2 (06:12→18:35)
[2021-08-01] MEDS: Docusate Oral Soln 100 MG/10 ML UDC PO SCH ×2 (08:34→20:07)
[2021-08-01] MEDS: Potassium Chloride Elixir 20 MEQ/15 ML UDC PO SCH ×2 (08:35→22:52)
[2021-08-01] MEDS: Pantoprazole 40 MG VIAL IVP SCH (08:35)
[2021-08-01 09:09] LABS: Hemoglobin 7.3 g/dL (11.5-15.4); Mean Platelet Volume 9.3 fL (9.4-12.4)
[2021-08-01 09:12] LABS: Hematocrit 23.3 % (35.3-44.9); Mean Corpuscular HGB Conc 31.3 g/dL (31.6-35.5); Mean Corpuscular Hemoglobin 27.9 pg (28.0-33.3); Mean Corpuscular Volume 88.9 fL (83.0-100.0); Platelet Count 433 K/mcL (140-400); Red Blood Count 2.62 M/mcL (3.82-4.97); Red Cell Distribution Width 15.5 % (11.5-14.5); White Blood Count 13.3 K/mcL (4.3-11.1)
[2021-08-01 09:28] LABS: Alanine Aminotransferase 6 Units/L (7-52); Albumin 2.5 g/dL (3.5-5.7); Albumin/Globulin Ratio 0.9 (1.1-2.2); Alkaline Phosphatase 74 Units/L (34-104); Aspartate Amino Transferase 9 Units/L (13-39); BUN/Creatinine Ratio 9 (6-26); Bilirubin,Total 0.3 mg/dL (0.3-1.0); Blood Urea Nitrogen 6 mg/dL (8-23); Calcium 7.6 mg/dL (8.6-10.3); Carbon Dioxide 26 mEq/L (23-29); Chloride 107 mEq/L (98-107); Globulin 2.8 g/dL (2.4-3.5); Glucose 122 mg/dL (70-105); Osmolality,Calculated 285 (280-300); Phosphorous 1.9 mg/dL (2.7-4.5); Potassium 3.6 mEq/L (3.5-5.1); Sodium 138 mEq/L (136-145); Total Protein 5.3 g/dL (6.4-8.9); eGFR For African Americans > 60 (> 60); eGFR For Non-African Americans > 60 (> 60)
[2021-08-01 09:51] LABS: Anisocytosis 1+ (Not Present); Hypochromasia Present (Not Present); Lymphocytes # 2.5 K/mcL (0.6-4.6); Monocytes # 1.5 K/mcL (0.0-1.3); Neutrophils # 8.9 K/mcL (1.6-8.9); Platelet Estimate Normal (Normal)
[2021-08-01 09:52] LABS: Toxic Granulation Present (Not Present)
[2021-08-01] MEDS: Ondansetron 4 MG/2 ML VIAL IVP PRN (12:32)
[2021-08-01] MEDS: Acetaminophen IV 1,000 MG/100 ML BAG IVPB PRN (17:33)
[2021-08-01] MEDS ORDERED: Potassium Chloride Elixir 20 MEQ/15 ML UDC PO SCH (22:30)
[2021-08-02] MEDS: *HR* Dextrose 50 % in Water (Syg) 50 ML SYRINGE IVP PRN (01:11)
[2021-08-02] MEDS: Insulin LISPRO 300 UNITS/3 ML VIAL SUBQ SCH ×2 (01:25→05:29)
[2021-08-02] MEDS: Acetaminophen IV 1,000 MG/100 ML BAG IVPB PRN ×3 (03:00→23:19)
[2021-08-02 04:57] LABS: Basophils # 0.1 K/mcL (0.0-0.2); Basophils % 0.4 %; Eosinophils % 0.2 %; Hemoglobin 7.7 g/dL (11.5-15.4); Immature Granulocytes % 8.8 % (0-4); Lymphocytes # 1.6 K/mcL (0.6-4.6); Lymphocytes % 8.5 %; Mean Corpuscular HGB Conc 32.1 g/dL (31.6-35.5); Mean Corpuscular Hemoglobin 28.4 pg (28.0-33.3); Mean Corpuscular Volume 88.6 fL (83.0-100.0); Mean Platelet Volume 9.5 fL (9.4-12.4); Monocytes # 1.9 K/mcL (0.0-1.3); Monocytes % 9.9 %; Neutrophils # 13.9 K/mcL (1.6-8.9); Platelet Count 474 K/mcL (140-400); Red Blood Count 2.71 M/mcL (3.82-4.97); Red Cell Distribution Width 15.3 % (11.5-14.5); Segmented Neutrophils % 72.2 %; White Blood Count 19.2 K/mcL (4.3-11.1)
[2021-08-02 05:20] LABS: BUN/Creatinine Ratio 7 (6-26); Blood Urea Nitrogen 4 mg/dL (8-23); Calcium 7.7 mg/dL (8.6-10.3); Carbon Dioxide 25 mEq/L (23-29); Chloride 103 mEq/L (98-107); Glucose 111 mg/dL (70-105); Osmolality,Calculated 278 (280-300); Potassium 3.3 mEq/L (3.5-5.1); Sodium 135 mEq/L (136-145); eGFR For African Americans > 60 (> 60); eGFR For Non-African Americans > 60 (> 60)
[2021-08-02 05:22] LABS: Anisocytosis 1+ (Not Present); Hypochromasia Present (Not Present)
[2021-08-02] MEDS: Piperacillin/Tazobactam 3.375 GM in 0.9 % Sodium Chloride Mini Bag 100 ML IVPB SCH ×3 (05:31→21:43)
[2021-08-02] MEDS: *HR* Heparin 5,000 UNIT/ML VIAL SQ SCH ×2 (05:33→18:14)
[2021-08-02] MEDS: D5% in 0.9% NACL 1,000 ML IVC SCH ×2 (08:49→23:26)
[2021-08-02] MEDS: Pantoprazole 40 MG VIAL IVP SCH (08:49)
[2021-08-02] MEDS: Ondansetron 4 MG/2 ML VIAL IVP PRN (12:01)
[2021-08-02] MEDS ORDERED: Isovue-370 500 ML BOTTLE IVP ONE (13:40)
[2021-08-02] MEDS ORDERED: Isovue-370 500 ML BOTTLE PO ONE (14:11)
[2021-08-02 23:10] LABS: Magnesium 1.7 mg/dL (1.6-2.6); Phosphorous 1.9 mg/dL (2.7-4.5)
[2021-08-03 01:43] LABS: Basophils % 0.6 %; Eosinophils # 0.1 K/mcL (0.0-0.6); Eosinophils % 0.4 %; Hematocrit 26.1 % (35.3-44.9); Hemoglobin 8.2 g/dL (11.5-15.4); Lymphocytes # 2.1 K/mcL (0.6-4.6); Lymphocytes % 9.2 %; Mean Corpuscular HGB Conc 31.4 g/dL (31.6-35.5); Mean Corpuscular Hemoglobin 27.4 pg (28.0-33.3); Mean Corpuscular Volume 87.3 fL (83.0-100.0); Mean Platelet Volume 9.4 fL (9.4-12.4); Monocytes # 1.5 K/mcL (0.0-1.3); Monocytes % 6.5 %; Neutrophils # 17.5 K/mcL (1.6-8.9); Nucleated Red Blood Cells 0.1 /100 WBC (0); Platelet Count 557 K/mcL (140-400); Red Blood Count 2.99 M/mcL (3.82-4.97); Segmented Neutrophils % 75.3 %; White Blood Count 23.2 K/mcL (4.3-11.1)
[2021-08-03 01:47] LABS: Anisocytosis 1+ (Not Present); Basophils # 0.1 K/mcL (0.0-0.2); Hypochromasia Present (Not Present); Platelet Estimate Increased (Normal)
[2021-08-03 02:02] LABS: BUN/Creatinine Ratio 5 (6-26); Blood Urea Nitrogen 3 mg/dL (8-23); Calcium 8.1 mg/dL (8.6-10.3); Carbon Dioxide 24 mEq/L (23-29); Chloride 99 mEq/L (98-107); Glucose 93 mg/dL (70-105); Osmolality,Calculated 270 (280-300); Potassium 3.6 mEq/L (3.5-5.1); Sodium 132 mEq/L (136-145); eGFR For African Americans > 60 (> 60); eGFR For Non-African Americans > 60 (> 60)
[2021-08-03] MEDS: *HR* Heparin 5,000 UNIT/ML VIAL SQ SCH ×2 (05:07→16:59)
[2021-08-03] MEDS: Piperacillin/Tazobactam 3.375 GM in 0.9 % Sodium Chloride Mini Bag 100 ML IVPB SCH ×3 (05:07→21:23)
[2021-08-03] MEDS ORDERED: Vancomycin 1,500 MG/265 ML IV.SOLN IVPB SCH (08:00)
[2021-08-03] MEDS: Azithromycin 500 MG in 0.9 % Sodium Chloride 250 ML IVPB SCH (08:24)
[2021-08-03] MEDS: Pantoprazole 40 MG VIAL IVP SCH (08:25)
[2021-08-03] MEDS: Ondansetron 4 MG/2 ML VIAL IVP PRN ×2 (08:39→23:09)
[2021-08-03 11:29] LABS: Adenovirus F 40/41 PCR Not detected (Not detect); Astrovirus PCR Not detected (Not detect); C.difficile Toxin A/B Gene PCR Not detected (Not detect); Campylobacter by PCR Not detected (Not detect); Cryptosporidium by PCR Not detected (Not detect); Cyclospora cayetanensis PCR Not detected (Not detect); E. coli O157 by PCR Not detected (Not detect); Entamoeba histolytica PCR Not detected (Not detect); Enteroaggregative E.coli(EAEC) Not detected (Not detect); Enteropathogenic E.coli(EPEC) Not detected (Not detect); Enterotoxigenic E.coli (ETEC) Not detected (Not detect); Giardia lamblia PCR Not detected (Not detect); Norovirus GI/GII PCR Not detected (Not detect); Plesiomonas shigelloides PCR Not detected (Not detect); Rotavirus A PCR Not detected (Not detect); Salmonella PCR Not detected (Not detect); Sapovirus PCR Not detected (Not detect); Shig/EnteroinvasiveE coli EIEC Not detected (Not detect); Shigalike tox-prod E coli STEC Not detected (Not detect); Vibrio PCR Not detected (Not detect); Vibrio cholerae PCR Not detected (Not detect); Yersinia enterocolitica PCR Not detected (Not detect)
[2021-08-03] MEDS: D5% in 0.9% NACL 1,000 ML IVC SCH ×2 (12:46→23:08)
[2021-08-03] MEDS: *HR* Dextrose 50 % in Water (Syg) 50 ML SYRINGE IVP PRN (18:24)
[2021-08-03] MEDS: Acetaminophen IV 1,000 MG/100 ML BAG IVPB PRN (21:26)
[2021-08-04] MEDS: Piperacillin/Tazobactam 3.375 GM in 0.9 % Sodium Chloride Mini Bag 100 ML IVPB SCH ×3 (05:13→22:06)
[2021-08-04] MEDS: *HR* Heparin 5,000 UNIT/ML VIAL SQ SCH ×2 (05:14→17:04)
[2021-08-04 06:21] LABS: Basophils # 0.1 K/mcL (0.0-0.2); Basophils % 0.4 %; Eosinophils # 0.2 K/mcL (0.0-0.6); Hematocrit 24.2 % (35.3-44.9); Hemoglobin 7.7 g/dL (11.5-15.4); Immature Granulocytes % 5.2 % (0-4); Lymphocytes # 1.9 K/mcL (0.6-4.6); Lymphocytes % 10.2 %; Mean Corpuscular HGB Conc 31.8 g/dL (31.6-35.5); Mean Corpuscular Hemoglobin 27.3 pg (28.0-33.3); Mean Corpuscular Volume 85.8 fL (83.0-100.0); Mean Platelet Volume 9.4 fL (9.4-12.4); Monocytes # 1.3 K/mcL (0.0-1.3); Monocytes % 6.8 %; Neutrophils # 14.2 K/mcL (1.6-8.9); Platelet Count 520 K/mcL (140-400); Red Blood Count 2.82 M/mcL (3.82-4.97); Red Cell Distribution Width 14.9 % (11.5-14.5); Segmented Neutrophils % 76.4 %; White Blood Count 18.6 K/mcL (4.3-11.1)
[2021-08-04 06:36] LABS: Anisocytosis 1+ (Not Present); Hypochromasia Present (Not Present); Platelet Estimate Marked Increase (Normal)
[2021-08-04 06:39] LABS: BUN/Creatinine Ratio 4 (6-26); Blood Urea Nitrogen 2 mg/dL (8-23); Calcium 7.8 mg/dL (8.6-10.3); Carbon Dioxide 28 mEq/L (23-29); Chloride 97 mEq/L (98-107); Glucose 107 mg/dL (70-105); Osmolality,Calculated 271 (280-300); Potassium 3.4 mEq/L (3.5-5.1); Sodium 132 mEq/L (136-145); eGFR For African Americans > 60 (> 60); eGFR For Non-African Americans > 60 (> 60)
[2021-08-04] MEDS: Acetaminophen IV 1,000 MG/100 ML BAG IVPB PRN ×2 (07:46→19:32)
[2021-08-04] MEDS: Ondansetron 4 MG/2 ML VIAL IVP PRN (07:50)
[2021-08-04] MEDS: Azithromycin 500 MG in 0.9 % Sodium Chloride 250 ML IVPB SCH (07:50)
[2021-08-04] MEDS: Pantoprazole 40 MG VIAL IVP SCH (07:50)
[2021-08-04] MEDS ORDERED: D5% in 0.9% NACL 1,000 ML IVC SCH (09:00)
[2021-08-04 16:14] LABS: Bilirubin,Urine Negative (Negative); Blood,Urine Negative (Negative); Clarity,Urine Clear (Clear); Color,Urine Colorless (Yellow); Glucose,Urine (UA) Normal (Normal); Ketones,Urine Negative (Negative); Leukocyte Esterase,Urine Negative (Negative); Nitrite,Urine Negative (Negative); PH,Urine 7.5 pH Units (5.0-8.0); Protein,Urine Negative (Neg-Trace); Specific Gravity,Urine 1.011 (1.010-1.025); Urobilinogen,Urine Normal (Normal)
[2021-08-04] MEDS ORDERED: Ibuprofen 600 MG TABLET PO ONE (21:59)
[2021-08-05] MEDS: Piperacillin/Tazobactam 3.375 GM in 0.9 % Sodium Chloride Mini Bag 100 ML IVPB SCH ×3 (05:23→22:16)
[2021-08-05] MEDS: *HR* Heparin 5,000 UNIT/ML VIAL SQ SCH ×2 (05:25→17:00)
[2021-08-05 07:27] LABS: Basophils # 0.1 K/mcL (0.0-0.2); Basophils % 0.4 %; Eosinophils # 0.2 K/mcL (0.0-0.6); Eosinophils % 1.4 %; Hematocrit 24.9 % (35.3-44.9); Hemoglobin 7.8 g/dL (11.5-15.4); Lymphocytes # 1.7 K/mcL (0.6-4.6); Lymphocytes % 9.9 %; Mean Corpuscular HGB Conc 31.3 g/dL (31.6-35.5); Mean Corpuscular Hemoglobin 27.2 pg (28.0-33.3); Mean Corpuscular Volume 86.8 fL (83.0-100.0); Mean Platelet Volume 10.2 fL (9.4-12.4); Monocytes # 1.2 K/mcL (0.0-1.3); Monocytes % 6.9 %; Neutrophils # 13.2 K/mcL (1.6-8.9); Platelet Count 443 K/mcL (140-400); Red Blood Count 2.87 M/mcL (3.82-4.97); Segmented Neutrophils % 78.4 %; White Blood Count 16.8 K/mcL (4.3-11.1)
[2021-08-05 07:47] LABS: BUN/Creatinine Ratio 6 (6-26); Blood Urea Nitrogen 4 mg/dL (8-23); Calcium 7.9 mg/dL (8.6-10.3); Carbon Dioxide 28 mEq/L (23-29); Chloride 97 mEq/L (98-107); Glucose 91 mg/dL (70-105); Magnesium 1.5 mg/dL (1.6-2.6); Osmolality,Calculated 270 (280-300); Phosphorous 3.6 mg/dL (2.7-4.5); Potassium 3.6 mEq/L (3.5-5.1); Sodium 132 mEq/L (136-145); eGFR For African Americans > 60 (> 60); eGFR For Non-African Americans > 60 (> 60)
[2021-08-05] MEDS: Pantoprazole 40 MG VIAL IVP SCH (08:55)
[2021-08-05] MEDS: Azithromycin 500 MG in 0.9 % Sodium Chloride 250 ML IVPB SCH (08:55)
[2021-08-05] MEDS ORDERED: Ibuprofen 600 MG TABLET PO PRN (11:17)
[2021-08-05] MEDS: Acetaminophen 325 MG TABLET PO PRN ×2 (13:15→23:23)
[2021-08-05] MEDS: Ondansetron 4 MG/2 ML VIAL IVP PRN (20:01)
[2021-08-05] MEDS ORDERED: *HR* Metoprolol 5 MG/5 ML VIAL IVP ONE (22:23)
[2021-08-06] MEDS: Piperacillin/Tazobactam 3.375 GM in 0.9 % Sodium Chloride Mini Bag 100 ML IVPB SCH (05:31)
[2021-08-06] MEDS: *HR* Heparin 5,000 UNIT/ML VIAL SQ SCH (05:32)
[2021-08-06 07:36] VITALS: TEMP 97.9
[2021-08-06] MEDS: atenoloL 50 MG TABLET PO SCH (08:16)
[2021-08-06 08:50] LABS: Basophils % 0.2 %; Eosinophils # 0.2 K/mcL (0.0-0.6); Hematocrit 26.6 % (35.3-44.9); Hemoglobin 8.5 g/dL (11.5-15.4); Immature Granulocytes % 1.6 % (0-4); Lymphocytes # 1.4 K/mcL (0.6-4.6); Lymphocytes % 7.6 %; Mean Corpuscular Volume 87.5 fL (83.0-100.0); Mean Platelet Volume 9.3 fL (9.4-12.4); Monocytes # 1.1 K/mcL (0.0-1.3); Monocytes % 5.9 %; Neutrophils # 15.2 K/mcL (1.6-8.9); Platelet Count 606 K/mcL (140-400); Red Blood Count 3.04 M/mcL (3.82-4.97); Red Cell Distribution Width 15.2 % (11.5-14.5); Segmented Neutrophils % 83.7 %; White Blood Count 18.2 K/mcL (4.3-11.1)
[2021-08-06] MEDS ORDERED: Azithromycin 250 MG TABLET PO SCH (09:00)
[2021-08-06 09:02] LABS: BUN/Creatinine Ratio 9 (6-26); Blood Urea Nitrogen 6 mg/dL (8-23); Calcium 8.1 mg/dL (8.6-10.3); Carbon Dioxide 28 mEq/L (23-29); Chloride 96 mEq/L (98-107); Glucose 90 mg/dL (70-105); Osmolality,Calculated 269 (280-300); Potassium 4.3 mEq/L (3.5-5.1); Sodium 131 mEq/L (136-145); eGFR For African Americans > 60 (> 60); eGFR For Non-African Americans > 60 (> 60)
[2021-08-06 11:29] VITALS: BP 151/76; PULSE 98; O2SAT 97
== END 2021-08-06 12:56 | disposition home or self-care (01) | DRG 329 ==
LOC: 3ANU 15:34 → EMEROOARM 15:34 → 3ANU 20:00
PROVIDERS: ADMIT Surgery; ATTEND Surgery